=== PATIENT | female | born 1965 | race Caucasian/White ===

== ENCOUNTER 2017-12-31 07:16 | Emergency (ER) | payer OTHER ==
[2017-12-31 07:30] VITALS: BP 135/86
--- NOTE | 2017-12-31 07:42 | UC ---
Lower Extremity/Ankle HPI - HPI Summary HPI Summary: This patient is a 52 year old F presenting to [facility] [place] accompanied by her son with a chief complaint of right knee pain that is worse today. The patient rates the pain 10/10 in severity. Symptoms aggravated by ambulating. Symptoms alleviated by ibuprofen, last dose was at 0330. Patient denies trauma and injury. She states she was fine walking last night but this morning the pain began. Hx of right meniscus surgery. She states she has never been able to straighten her leg since the repair of her knee by Dr. Morin. - History of Current Complaint Chief Complaint: UCLowerExtremity Stated Complaint: KNEE INJURY Time Seen by Provider: 12/31/17 07:24 Hx Obtained From: Patient Hx Last Menstrual Period: 12/14/17 Onset/Duration: Lasting Days - 1, Still Present, Worse Since Severity Initially: Moderate Severity Currently: Severe Pain Intensity: 10 Pain Scale Used: 0-10 Numeric Aggravating Factor(s): Ambulation Able to Bear Weight: Yes - Allergies/Home Medications Allergies/Adverse Reactions: Allergies Allergy/AdvReac Type Severity Reaction Status Date / Time Penicillins Allergy Vomiting Verified 12/31/17 07:31 Home Medications: Home Medications Ibuprofen TAB* [Advil TAB*] 800 mg PO Q6H PRN 12/31/17 [History Confirmed ] Loratadine 10 mg PO DAILY 12/31/17 [History Confirmed 12/31/17] PMH/Surg Hx/FS Hx/Imm Hx - Additional Past Medical History Additional PMH: Hx of right meniscus surgery. Other History Of: Negative For: Hepatitis B, Hepatitis C - Surgical History Surgical History: Yes Surgery Procedure, Year, and Place: R knee meniscus - Family History Known Family History: Negative: Diabetes, Respiratory Disease, Seizure Disorder, Blood Disorder - Social History Alcohol Use: Rare Substance Use Type: None Smoking Status (MU): Former Smoker Review of Systems Constitutional: Negative - fever Musculoskeletal: Other: - right knee pain All Other Systems Reviewed And Are Negative: Yes Physical Exam - Summary Physical Exam Summary: VITAL SIGNS: Reviewed. GENERAL: Patient is a well-developed and nourished female who is lying comfortable in the stretcher. Patient is not in any acute respiratory distress. HEAD AND FACE: Normocephalic EYES: PERRLA, EOMI x 2. EARS: Hearing grossly intact. MOUTH: Oropharynx within normal limits. NECK: Supple, trachea is midline, no adenopathy, no JVD, no carotid bruit. CHEST: Symmetric, no tenderness at palpation LUNGS: Clear to auscultation bilaterally. No wheezing or crackles. CVS: Regular rate and rhythm, S1 and S2 present, no murmurs or gallops appreciated. ABDOMEN: Soft, non-tender. Bowel sounds are normal. No abdominal abnormal pulsations. EXTREMITIES: Full ROM in all major joints, no edema, no cyanosis or clubbing. Good ROM in the right knee, no erythema, no ecchymosis, no deformity, TTP right lateral ligament. NEURO: Alert and oriented x 3. No acute neurological deficits. Speech is normal and follows commands. SKIN: Dry and warm Triage Information Reviewed: Yes Vital Signs: Initial Vital Signs Temp 98.4 F 12/31/17 07:24 Pulse 82 12/31/17 07:24 Resp 16 12/31/17 07:24 BP 135/86 12/31/17 07:24 Pulse Ox 96 12/31/17 07:24 Vital Signs Reviewed: Yes Lower Extremity Course/Dx - Course Course Of Treatment: Patient is a 52-year-old female who presents to the urgent care with a chief complaint of right knee pain. She reports no history of trauma or heavy lifting. He seems that the patient has history of knee surgery. There is no swelling, there is no erythema, no deformity. Since no history of trauma no x-ray was performed. Patient will be discharged with pain medications and anti-inflammatories and the follow-up with orthopedics. He since that the patient will be dealing with that meniscus of tendon injury. Patient is ambulating out of the emergency department. - Differential Dx/Diagnosis Provider Diagnoses: knee pain Discharge - Sign-Out/Discharge Documenting (check all that apply): Patient Departure All imaging exams completed and their final reports reviewed: No Studies - Discharge Plan Condition: Stable Disposition: HOME Prescriptions: Cyclobenzaprine TAB* [Flexeril 10 MG TAB*] 10 mg PO TID PRN #12 tab PRN Reason: Pain HYDROcodone/ACETAMIN 5-325 MG* [[place] 5-325 TAB*] 1 tab PO Q6H PRN #12 tab MDD 4 PRN Reason: Pain Patient Education Materials: Knee Pain (ED) Forms: *Work Release Referrals: Naveen Pratt MD [Medical Doctor] - Additional Instructions: F/U with ortho in the next 2-3 days Take medications as indicated. Return to the UC if symptoms worsen. - Billing Disposition and Condition Condition: STABLE Disposition: Home - Attestation Statements Document Initiated by Cristhian: Yes Documenting Scribe: Bridger Chun Provider For Whom Cristhian is Documenting (Include Credential): Eliud Deng MD Scribe Attestation: IBridger , scribed for Eliud Deng MD on 12/31/17 at 2018. Scribe Documentation Reviewed: Yes Provider Attestation: The documentation as recorded by the Bridger poole accurately reflects the service I personally performed and the decisions made by me, Eliud Deng MD
[2017-12-31] MEDS ORDERED: HYDROcodone/ACETAMIN 5-325 MG* 1 TAB PO ONE (08:34)
== END 2017-12-31 08:40 | disposition home or self-care (01) ==
LOC: UCEAST 07:16
DX: M25.561 Pain in right knee (principal); Z88.0 Allergy status to penicillin; Z87.891 Personal history of nicotine dependence
CPT/HCPCS: 99212; G0463

== ENCOUNTER 2018-03-19 06:56 | Emergency (ER) | payer OTHER ==
[2018-03-19] MEDS ORDERED: Acetaminophen TAB* 325 MG PO ONE (07:26)
[2018-03-19] MEDS ORDERED: Tetan/Diph/Pertus SYR(Tdap)* 0.5 ML SYR(BOOSTRIX) use SYR IM ONE (07:26)
[2018-03-19 09:14] VITALS: BP 131/73
--- NOTE | 2018-03-19 13:26 | ED ---
Head Injury - HPI Summary HPI Summary: 53-year-old female who presents emergency department for a head injury. Patient states she was coming down her house steps today when she slipped on ice and hit the back of her head off of a concrete step. She denies loss of consciousness. Complains of severe headache and laceration. She denies neck pain, chest pain, shortness breath, abdominal pain, numbness, tingling, weakness. She is not anticoagulated. Symptoms are moderate in severity. No current modifying factors. Unaware of last tetanus immunization. - History Of Current Complaint Chief Complaint: EDHeadInjury Stated Complaint: HEAD INJURY Time Seen by Provider: 03/19/18 07:17 Hx Obtained From: Patient Hx Last Menstrual Period: 12/14/17 Pain Intensity: 7 Pain Scale Used: 0-10 Numeric - Allergies/Home Medications Allergies/Adverse Reactions: Allergies Allergy/AdvReac Type Severity Reaction Status Date / Time Penicillins Allergy Vomiting Verified 03/19/18 07:20 PMH/Surg Hx/FS Hx/Imm Hx Previously Healthy: Yes Endocrine/Hematology History: Denies: Hx Diabetes, Hx Thyroid Disease Cardiovascular History: Denies: Hx Hypertension Respiratory History: Denies: Hx Asthma, Hx Chronic Obstructive Pulmonary Disease (COPD) GI History: Denies: Hx Ulcer - Surgical History Surgery Procedure, Year, and Place: R knee meniscus - Immunization History Immunizations Up to Date: Yes Infectious Disease History: No Infectious Disease History: Denies: Hx Clostridium Difficile, Hx Hepatitis, Hx Human Immunodeficiency Virus (HIV), Hx of Known/Suspected MRSA, Hx Shingles, Hx Tuberculosis, Traveled Outside the [place] in Last 30 Days - Family History Known Family History: Negative: Diabetes, Respiratory Disease, Seizure Disorder, Blood Disorder - Social History Occupation: Employed Full-time Lives: With Family Alcohol Use: Rare Substance Use Type: Reports: None Smoking Status (MU): Former Smoker Review of Systems Eyes: Negative Cardiovascular: Negative Respiratory: Negative Gastrointestinal: Negative Positive: Other - scalp laceration Positive: Headache. Negative: Weakness, Paresthesia, Numbness All Other Systems Reviewed And Are Negative: Yes Physical Exam Triage Information Reviewed: Yes Vital Signs On Initial Exam: Initial Vitals Temp Pulse Resp BP Pulse Ox 98.1 F 86 18 139/74 99 03/19/18 06:59 03/19/18 06:59 03/19/18 06:59 03/19/18 06:59 03/19/18 06:59 Vital Signs Reviewed: Yes Appearance: Positive: Well-Appearing - Pt. sitting up in bed with ice on head. Appears uncomfortable but nontoxic. present. Skin: Positive: Warm, Dry Head/Face: Positive: Other - 1cm linear laceration to the posterior scalp. No active bleeding Eyes: Positive: Normal, EOMI, SHALOM, Conjunctiva Clear Neck: Positive: Supple, Nontender - No midline tenderness Musculoskeletal: Positive: Normal, Strength/ROM Intact Neurological: Positive: Normal, Alert, Oriented to Person Place, Time, CN Intact II-III Psychiatric: Positive: Affect/Mood Appropriate - Madalyn Coma Scale Best Eye Response: 4 - Spontaneous Best Motor Response: 6 - Obeys Commands Best Verbal Response: 5 - Oriented Coma Scale Total: 15 Diagnostics - Vital Signs Vital Signs Temp Pulse Resp BP Pulse Ox 03/19/18 09:11 97.6 F 84 18 131/73 98 03/19/18 08:52 105 120/92 99 03/19/18 08:21 77 148/85 98 03/19/18 08:00 86 99 03/19/18 07:51 76 136/86 98 03/19/18 07:50 74 142/94 98 03/19/18 07:23 79 98 03/19/18 07:22 76 119/86 97 03/19/18 06:59 98.1 F 86 18 139/74 99 - Laboratory Lab Statement: Any lab studies that have been ordered have been reviewed, and results considered in the medical decision making process. Head Injury Course/Dx Course Of Treatment: Patient presenting for headache injury after striking head on concrete steps. No other injuries were sustained. Given injury and headache obtain CT scan to rule out fracture, bleed. Tetanus was updated. Wound was repaired as noted above. Head CT is negative for acute medical, reading per radiology. Patient was given a dose of Tylenol for pain. Staple removal in 5- 7 days. Ice Intermittently. Tylenol or Motrin for pain as directed. Close follow-up with family doctor and return to the ER symptoms change or worsen. Patient understands and agrees with plan. - Diagnoses Differential Diagnosis/HQI/PQRI: Cerebral Contusion, Cervical Sprain, Contusion , Hematoma, Intracranial Bleed, Laceration, Skull Fracture Provider Diagnoses: Head injury, Scalp laceration Discharge - Sign-Out/Discharge Documenting (check all that apply): Patient Departure - Discharge Plan Condition: Good Disposition: HOME Patient Education Materials: Head Injury (ED), Staple Care (ED) Forms: *Work Release Referrals: Susana Hamilton [Primary Care Provider] - Additional Instructions: Schedule a follow up appointment with your PCP Staple removal in 5-7 days Ice intermittently to help with pain Tylenol or Motrin for pain as directed Return to ER if symptoms change or worsen - Billing Disposition and Condition Condition: GOOD Disposition: Home
== END 2018-03-19 09:11 | disposition home or self-care (01) ==
LOC: ED 06:56
DX: S01.01XA Laceration without foreign body of scalp, initial encounter (principal); S09.90XA Unspecified injury of head, initial encounter; R51 Headache; W00.0XXA Fall on same level due to ice and snow, initial encounter; Y92.9 Unspecified place or not applicable; Z88.0 Allergy status to penicillin; Z87.891 Personal history of nicotine dependence
CPT/HCPCS: 70450; 90471; 90715; 99282; A9270-GY

== ENCOUNTER 2023-08-03 06:13 | Observation (INO) ==
[~2023-08-03 06:13] MED LIST: Metoclopramide 5 MG/ML VIAL (10 mg) IV PRN; NS 0.45% 1000 ml BAG 1,000 ML IV SCH; Naloxone 0.4 mg VIAL 0.4 mg/ml 1 ml VIAL IV PRN; Ondansetron 4 mg VIAL 2 MG/ML 2 ml VIAL IV PRN; fentaNYL 100 mcg/2 ml 50 MCG/ML VIAL IV PRN
[2023-08-03] MEDS: Buffered Lidocaine 1% SYRIN 1 ml INTRADERM ONE (07:03)
[2023-08-03] MEDS: Acetaminophen IV 1 GM/100ML 1,000 MG/100 ML BAG IV ONE (07:03)
[2023-08-03] MEDS ORDERED: Scopolamine 1 mg/72hr PATCH ONE (07:06)
[2023-08-03] MEDS ORDERED: ceFAZolin 2 GM PREMIX 2 GM/50 ML BAG ONE (07:07)
[2023-08-03] MEDS ORDERED: Tranexamic Acid 1 GM/100ML BAG 0 MG/0 ML BAG IV ONE (07:07)
[2023-08-03 07:43] LABS: Rapid COVID-19 Molecular Undetected (Undetected)
[2023-08-03] MEDS ORDERED: ROPIVACAINE 5 MG/ML 30 ML BTL (0.5%) ONE ×2 (07:43→10:44)
[2023-08-03] MEDS ORDERED: fentaNYL 100 mcg/2 ml 50 MCG/ML VIAL ONE (07:43)
[2023-08-03] MEDS ORDERED: Midazolam 5 mg/5 ml VIAL 1 mg/ml 5 ml VIAL (5 mg) ONE (07:43)
[2023-08-03] MEDS: Lactated Ringers 1000 ml BAG 1,000 ML IV SCH ×2 (07:46→13:57)
[2023-08-03] MEDS: Scopolamine 1 mg/72hr PATCH TRANSDERM ONE (07:46)
[2023-08-03] MEDS ORDERED: Propofol 10 MG/ML 20 ML BTL ONE ×2 (07:53→08:28)
[2023-08-03] MEDS ORDERED: KETAMINE HCL 10 MG/ML 20 ml VIAL (200 MG) ONE (07:53)
[2023-08-03] MEDS ORDERED: Lidocaine 2% PF 5 ML VIAL ONE (07:53)
[2023-08-03] MEDS ORDERED: Rocuronium 50 mg VIAL 10 mg/ml 5 ml VIAL (50 mg) ONE (08:27)
[2023-08-03] MEDS ORDERED: fentaNYL 250 mcg/5 ml 50 MCG/ML 5 ml VIAL (250 MCG) ONE (08:28)
[2023-08-03] MEDS ORDERED: Tranexamic Acid 1 GM/100ML BAG 2,000 MG/200 ML BAG IV ONE (09:11)
[2023-08-03] MEDS ORDERED: HYDROmorphone 0.5 MG/0.5 ML SYRINGE ONE (09:28)
[2023-08-03] MEDS ORDERED: Ondansetron 4 mg VIAL 2 MG/ML 2 ml VIAL ONE (09:46)
[2023-08-03] MEDS ORDERED: Dexamethasone IV 4 MG/ML VIAL 1 ml VIAL ONE (09:46)
[2023-08-03] MEDS ORDERED: Lactulose 30 ml UDC PO PRN (11:55)
[2023-08-03] MEDS ORDERED: Magnesium Hydroxide LIQ 30 ML UDC PO PRN (11:55)
[2023-08-03] MEDS ORDERED: Ondansetron ODT 4 mg TAB 4 MG TAB PO PRN (11:55)
[2023-08-03] MEDS ORDERED: Calcium Carb (TUMS) 500 mg CHEW TAB PO PRN (11:55)
[2023-08-03] MEDS: Ondansetron 4 mg VIAL 2 MG/ML 2 ml VIAL IV PRN (14:23)
[2023-08-03] MEDS ORDERED: Morphine 2 MG/ML SYRINGE IV PRN (15:10)
[2023-08-03] MEDS ORDERED: NON FORMULARY MED (Acetaminophen 500 mg Tablet) PO PRN (16:05)
[2023-08-03] MEDS: Clindamycin 900 MG/D5W BAG 900 MG/50 ML BAG IVPB SCH (17:48)
[2023-08-03] MEDS: Magnesium Hydroxide LIQ 30 ML UDC PO SCH (20:04)
[2023-08-04 05:42] LABS: Hematocrit 30.4 % (35-45); Hemoglobin 10.3 g/dL (11.5-14.3); Mean Platelet Volume 8.9 fL (7.5-11.2); Platelet Count 138 10^3/uL (150-450)
[2023-08-04 05:59] LABS: Calcium 8.3 mg/dL (8.6-10.3); Creatinine, Serum 0.58 mg/dL (0.51-0.95); Potassium 3.9 mmol/L (3.5-5.0); eGFR CKD-EPI 104.8 (>60)
[2023-08-04] MEDS: LoraTADine 10 mg TAB (NF) PO SCH (07:36)
[2023-08-04] MEDS: Vitamin THERAPEUTIC TAB PO SCH (07:36)
[2023-08-04] MEDS: Cholecalciferol (VIT D3) 1,000 unit TAB PO SCH (07:37)
[2023-08-04] MEDS ORDERED: [UNRECOGNIZED DRUG - OTHER] PO SCH (09:00)
[2023-08-04] MEDS ORDERED: MULTIVIT WITH MIN FOLIC ACID PO SCH (09:00)
[2023-08-04 09:57] VITALS: BP 105/62
== END 2023-08-04 13:07 | disposition home or self-care (01) ==
LOC: SSU 06:13 → OR 06:13
PROVIDERS: ADMIT Orthopaedic Surgery Adult Reconstructive Orthopaedic Surgery; ATTEND Orthopaedic Surgery Adult Reconstructive Orthopaedic Surgery